=== PATIENT | female | born 1985 | race Caucasian/White ===

== ENCOUNTER → 2021-06-04 | Outpatient (CLI) | payer BC, OTHER | END | disposition home or self-care (01) | LOC: LABWHC1 13:38 | PROVIDERS: ATTEND Emergency Medicine | DX: Z20.822 Contact with and (suspected) exposure to COVID-19 (principal) | CPT/HCPCS: 87635 ==

== ENCOUNTER → 2024-05-07 | Outpatient (CLI) | payer BC ==
--- NOTE | 2024-05-08 10:23 | MM ---
Reason for Exam: Screening (asymptomatic). Baseline mammogram. Patient History: Menarche at age 12. First Full-Term at age 27. Patient has history of breast feeding. Last menstrual period: 04/14/2024 Risk Values: Roxanne 5 year model risk: 0.6%. NCI Lifetime model risk: 12.2%. Prior Study Comparison: Patient's first Mammogram. Tissue Density: The breasts are heterogeneously dense, which may obscure small masses. Findings: Analyzed By CAD. There is no suspicious group of microcalcifications or new suspicious mass in either breast. Overall Assessment: Negative, BI-RAD 1 Management: Screening Mammogram of both breasts in 1 year. . Patient should continue monthly self-breast exams. A clinical breast exam by your physician is recommended on an annual basis. This exam should not preclude additional follow-up of suspicious palpable abnormalities. Note on Roxanne scores and lifetime risk: 1. A Roxanne score greater than 3% is considered moderate risk. If this is the case, consider specialist referral to assess eligibility for a risk reducing agent. 2. If overall lifetime risk for the development of breast cancer is 20% or higher, the patient may qualify for future screening with alternating mammogram and breast MRI. [facility], , 05/08/2024 10:20 AM. Electronically signed and approved by: Manan Goldstein M.D. Radiologis
== END | disposition home or self-care (01) ==
LOC: RADMAMWWP 07:16
PROVIDERS: ATTEND Internal Medicine
CPT/HCPCS: 77063; 77067

== ENCOUNTER → 2024-05-20 | Outpatient (CLI) | payer BC ==
[2024-05-20 08:55] VITALS: BP 137/87; PULSE 75; RESP 16; TEMP 98.4
--- NOTE | 2024-05-20 09:30 | P.HPOB ---
History of Present Illness H&P Date: 05/20/24 Chief Complaint: The patient is here for her routine gynecologic exam. This is a 39-year-old -0-1-1 with an LMP of 04/16/2024. The patient is here to establish with this office. It has been about 8 years since her last pelvic exam and she previously saw Dr. Lira for her gynecologic care. She uses withdrawal for control. She and her are considering having him get a vasectomy for control. She is without gynecologic complaints. Menstrual periods are regular every month. Review of Systems The patient's weight has been stable over the last year. She denies respiratory, cardiac, or G.I. problems. Past Medical History Past Medical History: Hyperlipidemia Additional Past Medical History / Comment(s): PAST RINK RAT HISTORY: She has no history of STDs. History of Any Multi-Drug Resistant Organisms: None Reported Past Surgical History: Section Additional Past Surgical History / Comment(s): D&C. 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 Past Anesthesia/Blood Transfusion Reactions: Motion Sickness Past Psychological History: No Psychological Hx Reported Smoking Status: Never smoker Past Alcohol Use History: Occasional (0-1 drinks per week.) Past Drug Use History: None Reported Additional History: She has been since 2008. 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 - Past Family History Mother Additional Family Medical History / Comment(s): Agoraphobia and mental issues. Denies family history of cancer of the breast, uterus, ovaries, or colon. Father Additional Family Medical History / Comment(s): Peptic ulcer disease. Daughter(s) Additional Family Medical History / Comment(s): after with a severe form of dwarfism. Medications and Allergies Home Medications Medication Instructions Recorded Confirmed Type Bacillus Coagulans [Probiotic] 1 tab PO DAILY 05/20/24 05/20/24 History Evolocumab [Repatha Syringe] 1 injection SQ QMONTHLY 05/20/24 05/20/24 History Ezetimibe/Rosuvastatin Calcium 10 mg PO DAILY 05/20/24 05/20/24 History [Roszet 10-10 mg Tablet] Allergies Allergy/AdvReac Type Severity Reaction Status Date / Time No Known Allergies Allergy Verified 05/20/24 08:50 Exam Vital Signs Temp Pulse Resp BP Pulse Ox 05/20/24 08:53 98.4 F 75 16 137/87 99 Intake and Output 05/19/24 05/20/24 05/20/24 22:59 06:59 14:59 Other: Weight 78.018 kg Height 5 feet 0 inches, weight 172 pounds, BMI 33.6. This is a well-developed well-nourished white female who is alert and oriented times 3 in no acute distress. HEENT: Within normal limits. NECK: Supple without mass or thyromegaly. CHEST AND LUNGS: Clear to auscultation. HEART: Regular rate and rhythm. BREASTS: Are without mass or discharge. AXILLARY EXAM: Negative for adenopathy. BACK: Negative for CVA tenderness. ABDOMEN: Soft, nontender, without palpable masses. PELVIC EXAM: Normal external genitalia. Cervix and vagina appear normal. There is no unusual discharge. There is no evidence of prolapse. The uterus is midposition, nongravid size and nontender. There are no palpable adnexal masses or tenderness. RECTAL EXAM: negative for mass or tenderness. EXTREMITIES: Nontender. IMPRESSION: 1. 39-year-old gynecologically healthy female with normal gynecologic exam. 2. She and her use withdrawal for control, but they are planning for her to get a vasectomy. PLAN: 1. Pap smear cotest was performed. 2. Self breast awareness was discussed with the patient. We have also discussed symptoms associated with inflammatory breast cancer. 3. Next screening mammogram at age 41. She states she has had 1 normal mammogram in the past. 4. Osteoporosis prevention was discussed. I have stressed the importance of adequate calcium, vitamin D and regular exercise. Recommended amounts of calcium and vitamin D were also discussed. 5. We have discussed control options. She states she is contemplating having her getting a vasectomy in the future. I have recommended that she take a daily multivitamin with folic acid as long as they are using withdrawal for control. She understands there is a higher risk of compared to other methods of control. 6. She was advised to return in one year for her annual well woman exam.
== END ==
LOC: WWCWWP 08:18
PROVIDERS: ATTEND Obstetrics & Gynecology
DX: Z01.419 Encounter for gynecological examination (general) (routine) without abnormal findings (principal)

== ENCOUNTER → 2025-01-14 | Outpatient (CLI) | payer BC ==
--- NOTE | 2025-01-14 14:16 | P.PN ---
Progress Note - Text Progress Note Date: 01/14/25 The patient called today regarding abnormal vaginal bleeding. The patient was seen here on 05/20/2024. At that time she was having regular monthly menstrual periods. She states she had started Repatha injections for elevated cholesterol. She states she was also taking Zetia. Sometime after her appointment in May, she stopped having menstrual periods and went for 2 to 3 months without a menstrual period. Because of this change she states she stopped the Repatha and Zetia medications. Soon after stopping the medications, she started having abnormal bleeding. She states she bled through the entire month of November with fairly heavy flow. She stopped for about 2 weeks in early December and then restarted bleeding again in mid December and has been bleeding for about 2 more weeks. She states the flow is heavier than a normal menstrual period flow. She states her did not get a vasectomy. She does not think she is . Impression: 39-year-old female with dysfunctional uterine bleeding after 2 to 3 months of amenorrhea. I doubt this is directly related to her cholesterol medications or the discontinuation of those medications. Plan: 1. I have recommended that she take a test. 2. I recommended that she start taking iron supplementation in the form of marissa aleah sulfate 325 mg daily. Also recommended that she try to drink plenty of fluids to stay well-hydrated. 3. She will keep a menstrual calendar. 4. An appointment has been made for her to be seen in the office on 01/20/2025. If she is having extremely heavy bleeding or problems such as lightheadedness, she was instructed to go to the emergency room. 5. We can consider the option of oral contraception to control the dysfunctional bleeding and for control.
== END ==
LOC: WWCWWP 13:48
PROVIDERS: ATTEND Obstetrics & Gynecology
DX: N93.8 Other specified abnormal uterine and vaginal bleeding (principal); E78.00 Pure hypercholesterolemia, unspecified

== ENCOUNTER → 2025-01-20 | Outpatient (CLI) | payer BC ==
[2025-01-20 09:07] VITALS: BP 132/79; PULSE 82; RESP 16; TEMP 98.3
--- NOTE | 2025-01-20 09:42 | P.PN ---
Progress Note - Text Progress Note Date: 01/20/25 Also see the progress note dated 01/14/2025. Chief Complaint: Abnormal vaginal bleeding since November 2024. HPI: This is a 39-year-old -0-1-1 with an LNMP of approximately April 2024. The patient states her menstrual periods were regular throughout most of her life. She was started on Repatha and Zetia for elevated cholesterol around April 2024. Soon after, her menstrual periods stopped. She went for about 3 months without a menstrual period. Because of this she discontinued her ch olesterol medications and started having very heavy vaginal bleeding. This heavy menstrual period started in July 2024. She was having menstrual periods about every 3 weeks and heavier than usual. Then in November 2024, she bled through the entire month. The bleeding stopped during the first 2 weeks of December and then she again started on 12/26/2024 with some bleeding until present. She states the bleeding now feels like the end of a period and is light. She did a home test this past week and was negative. She does not think she felt any symptoms during the time of amenorrhea or dysfunctional bleeding. She started a new job in July 2024, but states she loves her new job and this has not been stressful. She has had about a 3 pound weight gain since May. She denies hot or cold intolerance or hot flashes. She denies any nipple discharge. She has been using withdrawal for control. She has been taking ferrous sulfate 325 mg daily since we spoke on 01/14/2025. ROS: Unremarkable. And as above. PE: Blood pressure: 132/79, Height: 5 feet 0 inches, Weight: 175 pounds, Temperature: 98.3, Pulse: 82. This is a well developed, well nourished, white female who is alert and orientedx3, in no acute distress. Visual gutierrez are intact. Neck is supple without mass or thyromegaly. Normal external genitalia. Cervix and vagina reveal small amount of menstrual type blood with no heavy bleeding at this time. There is no cervical motion tenderness. The uterus is mid positioned, nongravid size, and nontender. There are no palpable adnexal masses or tenderness. Impression: 1. 39-year-old female using withdrawal for control, with dysfunctional uterine bleeding that followed 3 months of amenorrhea. This may or may not be related to the cholesterol medications that she was taking when the amenorrhea followed by dysfunctional uterine bleeding started. This does not seem to be a common side effect of these medications. Plan: 1. The patient will have TSH, FSH, and CBC drawn today. The order slip was given to the patient for this. 2. We have discussed various options including cyclic progestin therapy, oral contraception to regulate periods, and D&C. She would like to go without intervention at this time. 3. She will keep a menstrual calendar and call if she is having menstrual problems such as heavy or prolonged vaginal bleeding. 4. She will return for her annual well woman examination in approximately 4 months and at that time we can reevaluate her bleeding. She was instructed to call if she is having problems. Time spent with the patient: 25 minutes
[2025-01-20 15:30] LABS: Follicle Stimulating Hormone 5.9 mIU/mL
[2025-01-20 15:35] LABS: HCT 31.7 % (37.2-46.3); HGB 10.4 g/dL (12.0-15.0); MCH 27.7 pg (27.0-32.0); MCHC 32.8 g/dL (32.0-37.0); MCV 84.5 FL (80.0-97.0); NRBC Per 100 WBC 0 X 10*3/uL (0.00-0.01); Platelet Count 374 X 10*3/uL (140-440); RBC 3.75 X 10*6/uL (4.10-5.20); RDW 14.4 % (11.5-14.5); WBC 6.83 X 10*3/uL (4.50-10.00)
--- NOTE | 2025-01-20 17:47 | P.PN ---
Progress Note - Text Progress Note Date: 01/20/25 OUTPATIENT FOLLOW-UP NOTE TEST(S)/RESULTS: Test results from 01/20/2025 include normal TSH, FSH of 5.9 which is normal, and CBC showing a hemoglobin of 10.4 with normal white blood cell count and normal platelets. METHOD OF NOTIFICATION: The patient was notified by phone on 01/20/2025. PATIENT COMMENTS: She states she saw her PCP, Dr. Enciso, today. He may be ordering additional tests for her. DIAGNOSIS: Dysfunctional uterine bleeding with normal TSH and normal FSH. Mild anemia. DISCUSSION: She was instructed to continue taking the ferrous sulfate 325 mg daily at this time. See the plan from the earlier progress note from today. She will return at the latest for her annual examination in the fall. She was also instructed to call if she is having problems or if she would like to intervene with cyclic progestin or oral contraceptives to regulate her menstrual periods. PLAN: As above.
== END ==
LOC: WWCWWP 08:40
PROVIDERS: ATTEND Obstetrics & Gynecology
DX: N93.8 Other specified abnormal uterine and vaginal bleeding (principal); N91.2 Amenorrhea, unspecified
CPT/HCPCS: 83001; 84443; 85027

== ENCOUNTER → 2025-01-27 | Outpatient (CLI) | payer BC ==
[2025-01-27 14:57] LABS: Bilirubin,Urine Negative (Negative); Blood,Urine Negative (Negative); Color,Urine Yellow (Yellow); Ketones,Urine Negative (Negative); Nitrite,Urine Negative (Negative); PH, Urine 5.5; Specific Gravity,Urine 1.025 (1.001-1.030); Urobilinogen,Urine 0.2 E.U./DL
[2025-01-27 15:04] LABS: Bacteria,Urine None Seen (None Seen)
[2025-01-27 15:16] LABS: ALT 27 U/L (8-44); AST 21 U/L (13-35); Albumin 4.5 g/dL (3.8-4.9); Albumin/Globulin Ratio 1.96 Ratio (1.60-3.17); Alkaline Phosphatase 78 U/L (41-126); Anion Gap 10.50 mmol/L (4.00-12.00); BUN/Creat Ratio 15.75 Ratio (12.00-20.00); Blood Urea Nitrogen 12.6 mg/dL (9.0-27.0); Calcium 9.1 mg/dL (8.7-10.3); Carbon Dioxide 24.5 mmol/L (21.6-31.8); Chloride 106 mmol/L (96-109); Cholesterol 246.00 mg/dL (0.00-200.00); Creatine Kinase 76 U/L (26-186); Globulin 2.3 g/dL (1.6-3.3); Glucose 94 mg/dL (70-110); HDL Cholesterol 41.30 mg/dL (40.00-60.00); LDL Cholesterol,Calculated 163.9 mg/dL (0.0-131.0); Potassium 4.6 mmol/L (3.5-5.5); Sodium 141 mmol/L (135-145); Total Protein 6.8 g/dL (6.2-8.2); Triglycerides 204.00 mg/dL (0.00-149.00); VLDL Calculation 40.80 mg/dL (5.00-40.00)
== END | disposition home or self-care (01) ==
LOC: LABWHC1 09:09
PROVIDERS: ATTEND Internal Medicine
DX: E78.2 Mixed hyperlipidemia (principal); R35.0 Frequency of micturition
CPT/HCPCS: 36415; 80053; 80061; 81001; 82550; 83036